=== PATIENT | female | born 1970 | race Caucasian/White ===

== ENCOUNTER → 2017-12-10 | Day surgery (SDC) | payer BC ==
[~2017-12-10] MED LIST: FENTANYL CITRATE/PF 100MCG/2 ML INJ ONE; LIDOCAINE HCL 2% LOCAL INJ 5 ML SDV VIAL INJ ONE; METOCLOPRAMIDE HCL 10 MG/2ML VIAL ONE; MIDAZOLAM HCL 2 MG/2 ML VIAL ONE; PANTOPRAZOLE SO40 MG PO; PROPOFOL IV EMULSION 10 MG/ML 50 ML VIAL ONE
--- NOTE | 2017-12-10 14:59 | Operative Report ---
DATE OF PROCEDURE: December 10, 2017 REFERRING PHYSICIAN: Dr. Amanuel Velazquez. PROCEDURE: Esophagogastroduodenoscopy with balloon dilatation of pyloric channel stricture and biopsies. INDICATIONS FOR EGD: Heartburn, indigestion, excessive belching. MEDICATION: Patient was done under MAC. Please see anesthesiologist's note. DESCRIPTION OF PROCEDURE: With the patient in left lateral decubitus position, the flexible fiberoptic Olympus gastroscope was introduced into the esophagus under direct visualization without any difficulty. There was some patchy erythema noted in the distal esophagus. The scope was then advanced with ease into the stomach. Mucosa overlying the antrum and the body revealed some diffuse erythema and [id number] edema, and biopsies were obtained and sent to stain for H. pylori. Pylorus appeared to be strictured and could not be traversed with the scope and that was dilated to size 20 mm per TTS balloon dilators. The scope was then advanced with ease into the duodenum all the way to the second portion and then withdrawn slowly. Mucosa overlying the proximal second portion and the duodenal bulb appeared to be within normal limits. The scope was then withdrawn back into the stomach and retroflexed, and mucosa overlying the fundus and the cardia appeared to be within normal limits. The scope was then straightened out. The stomach was decompressed. The scope was subsequently withdrawn. Patient tolerated the procedure well. IMPRESSION 1. Distal esophagitis. 2. Gastritis, biopsied. Biopsies sent to stain for H. pylori. 3. Pyloric channel stricture, dilated to size 20 mm per TTS balloon dilators. PLAN: Follow up histology. Continue Protonix 40 mg 1 p.o. a.c. b.i.d. Job#: [id number] SAK cc:Amanuel Velazquez DO
== END | disposition home or self-care (01) ==
LOC: OR 07:14
PROVIDERS: ATTEND Internal Medicine Gastroenterology
DX: K29.70 Gastritis, unspecified, without bleeding (principal); K31.1 Adult hypertrophic pyloric stenosis; K20.9 Esophagitis, unspecified; K21.9 Gastro-esophageal reflux disease without esophagitis; R05 Cough; F41.9 Anxiety disorder, unspecified; N20.0 Calculus of kidney; Z68.28 Body mass index [BMI] 28.0-28.9, adult; Z87.01 Personal history of pneumonia (recurrent); Z87.891 Personal history of nicotine dependence; Z80.0 Family history of malignant neoplasm of digestive organs
CPT/HCPCS: 43239; 43245; 81025; C1726; J2001; J2250; J2765; 43233